=== PATIENT | male | born 1995 | race Caucasian/White ===

== ENCOUNTER → 2018-12-04 | Outpatient (REF) | payer OTHER | LOC: M LAB REF 13:07 | PROVIDERS: ATTEND Podiatrist Foot & Ankle Surgery | DX: L03.116 Cellulitis of left lower limb (principal) ==

== ENCOUNTER → 2020-07-20 | Outpatient (CLI) | payer OTHER ==
[2020-07-20 12:49] LABS: COLLAGEN EPINEPHRINE 167 SECONDS (74-162)
[2020-07-20 13:14] LABS: COLLAGEN ADP 127 SECONDS (56-103)
== END ==
LOC: M LAB 11:44
PROVIDERS: ATTEND Physician Assistant
DX: M48.061 Spinal stenosis, lumbar region without neurogenic claudication (principal)

== ENCOUNTER → 2020-10-18 | Outpatient (CLI) | payer OTHER ==
[2020-10-18 10:23] LABS: PLATELET COUNT, AUTOMATED 251 10^3/uL (150-450)
[2020-10-18 10:35] LABS: COLLAGEN EPINEPHRINE 142 SECONDS (74-162)
== END ==
LOC: M LAB 09:32
PROVIDERS: ATTEND Orthopaedic Surgery
DX: Z01.812 Encounter for preprocedural laboratory examination (principal)